=== PATIENT | male | born 1975 | race Caucasian/White ===

== ENCOUNTER 2017-12-31 11:39 | Emergency (ER) | payer MEDICAID, OTHER ==
--- NOTE | 2017-12-31 12:30 | EDPHY ---
H & P Stated Complaint: ETOH detox Source: Patient, Family - Personal History Current Tetanus/Diphtheria Vaccine: Unsure Current Tetanus Diphtheria and Acellular Pertussis (TDAP): Unsure - Medical/Surgical History Hx Asthma: No Hx Chronic Respiratory Disease: No Hx Diabetes: No Hx Cardiac Disease: No Hx Renal Disease: No Hx Cirrhosis: No Hx Alcoholism: Yes Hx HIV/AIDS: No Hx Splenectomy or Spleen Trauma: No Other PMH: ETOH abuse, - Social History Smoking Status: Current every day smoker Time Seen by Provider: 12/31/17 11:58 HPI/ROS: CHIEF COMPLAINT: Requesting referral to [facility] for alcohol detox HISTORY OF PRESENT ILLNESS: The patient presents the ED requesting a referral to [facility] for alcohol detox. The patient denies suicidal or homicidal ideation. The patient reportedly was unable to be seen for an intake visit at [facility] until next week. He was advised to seek care in the emergency department to see if a referral could be expedited. The patient reports his last drink was earlier today. The patient is reporting symptoms of mild alcohol withdrawal including feeling slightly nauseous and tremulous. The patient denies any additional acute medical complaints. The patient was at [facility] inpatient facility in September. REVIEW OF SYSTEMS: A comprehensive 10 point review of systems is otherwise negative aside from elements mentioned in the history of present illness. (Pramod Hernandez) - Physical Exam Exam: General Appearance: Alert, no distress, slightly tremulous Eyes: Pupils equal and round no pallor or injection ENT, Mouth: Mucous membranes moist Respiratory: There are no retractions, lungs are clear to auscultation Cardiovascular: Regular rate and rhythm Gastrointestinal: Abdomen is soft and nontender, no masses, bowel sounds normal Neurological: A&O, normal motor function, normal sensory exam, normal cranial nerves Skin: Warm and dry, no rashes Musculoskeletal: Neck is supple nontender Extremities: symmetrical, full range of motion Psychiatric: Patient is oriented X 3, there is no agitation (Pramod Hernandez) Constitutional: Initial Vital Signs Temperature (C) 36.7 C 12/31/17 11:53 Heart Rate 94 12/31/17 11:53 Respiratory Rate 16 12/31/17 11:53 Blood Pressure 137/96 H 12/31/17 11:53 O2 Sat (%) 96 12/31/17 11:53 O2 Delivery Mode Room Air Allergies/Adverse Reactions: No Known Allergies Allergy (Unverified 12/31/17 11:52) Home Medications: Medication Instructions Recorded Adderall 10 MG (*) 12/31/17 Medical Decision Making ED Course/Re-evaluation: The patient presents to the ED requesting medical clearance for voluntary inpatient admission to a detox facility. Case management was involved in a contacted [facility] who stated the patient would be eligible for voluntary admission. They have requested screening laboratory studies and urinalysis. The patient did receive 1 mg of Ativan in the emergency department at 1:40 p.m.. The patient has been medically cleared for admission to a voluntary detox facility. The patient is noted to have amphetamine in his urine consistent with Adderall prescription. He is noted to have a slight elevation of his liver function test and lipase secondary to his chronic alcohol dependence. He has no clinical evidence of an acute abdomen or pancreatitis. (Pramod Hernandez) 1500: The patient is awaiting placement. (Lisbeth Burdick) Differential Diagnosis: Differential diagnosis considered includes alcohol withdrawal syndrome, dehydration, metabolic abnormality, alcoholic hepatitis (Pramod Hernandez) - Data Points Laboratory Results: Laboratory Results 12/31/17 13:35 12/31/17 13:35 12/31/17 12/31/17 12/31/17 13:35 13:35 13:26 WBC 5.15 10^3/uL 10^3/uL (3.80-9.50) RBC 4.63 10^6/uL 10^6/uL (4.40-6.38) Hgb 16.5 g/dL g/dL (13.7-17.5) Hct 46.8 % % (40.0-51.0) MCV 101.1 fL H fL (81.5-99.8) MCH 35.6 pg H pg (27.9-34.1) MCHC 35.3 g/dL g/dL (32.4-36.7) RDW 12.5 % % (11.5-15.2) Plt Count 230 10^3/uL 10^3/uL (150-400) Sodium 138 mEq/L mEq/L (135-145) Potassium 3.9 mEq/L mEq/L (3.5-5.2) Chloride 95 mEq/L L mEq/L (97-110) Carbon Dioxide 27 mEq/l mEq/l (22-31) Anion Gap 16 mEq/L mEq/L (8-16) BUN 13 mg/dL mg/dL (7-23) Creatinine 0.9 mg/dL mg/dL (0.7-1.3) Estimated GFR > 60 Glucose 79 mg/dL mg/dL (70-100) Calcium 9.8 mg/dL mg/dL (8.5-10.4) Magnesium 2.0 mg/dL mg/dL (1.6-2.3) Total Bilirubin 0.4 mg/dL mg/dL (0.1-1.4) AST 160 IU/L H IU/L (17-59) ALT 187 IU/L H IU/L (21-72) Alkaline Phosphatase 91 IU/L IU/L (38-126) Total Protein 8.0 g/dL g/dL (6.3-8.2) Albumin 4.9 g/dL g/dL (3.5-5.0) Lipase 327 IU/L H IU/L (23-300) Urine Opiates Screen NEGATIVE (NEGATIVE) Urine Barbiturates NEGATIVE (NEGATIVE) Ur Phencyclidine Scrn NEGATIVE (NEGATIVE) Ur Amphetamine Screen NON-NEGATIVE H (NEGATIVE) U Benzodiazepines Scrn NEGATIVE (NEGATIVE) Urine Cocaine Screen NEGATIVE (NEGATIVE) U Marijuana (THC) Screen NEGATIVE (NEGATIVE) Ethyl Alcohol 117 mg/dL H mg/dL (0-10) Medications Given: Discontinued Medications Lorazepam (Ativan) 1 mg PO EDNOW ONE Stop: 12/31/17 13:42 Last Admin: 12/31/17 13:42 Dose: 1 mg Departure - Departure Disposition: Home, Routine, Self-Care Clinical Impression: Alcohol dependence Condition: Good Instructions: Alcohol Dependence (ED) Additional Instructions: 1. Please go to [facility] as arranged in the emergency department.
[2017-12-31] MEDS ORDERED: LORazepam 1 MG TAB ONE (13:40)
[2017-12-31] MEDS ORDERED: LORazepam 1 MG TAB PO ONE (13:41)
[2017-12-31 17:03] VITALS: BP 131/79
--- NOTE | 2017-12-31 17:12 | ASMTCMCOM ---
CM Note CM Note Notes: Patient presents to the ER requesting assistance with referral to [facility] for ETOH withdrawal. He explains that he did call [facility] to see about voluntary admission and they referred him to "go to an ER" for a potential same day admission. I contacted Brian at [facility] admissions #9 early this afternoon to initiate a referral. Brian tells me that patient was at [facility] for detox in September and "discharged" early, against the recommendation that he solidify a solid discharge plan. Brian tells me that patient would be able to return for detox, but they would like a solid committment from the patient regarding his intention for follow through. I have met with the patient to discuss this and have encouraged him to call admissions. Patient did call and speak with Brian in admissions and the admission process was started. 1445 PM: All requested paperwork, assessments, and labs faxed to [facility] . Awaiting physician review for acceptance/admission. 1630 PM: Patient has been accepted to detox. RN report given and patient discharged in the care of his mom (transport to ) [address] [facility] Date Signed: 12/31/2017 05:11 PM Electronically Signed By:Amna Mascorro RN
== END 2017-12-31 17:07 | disposition home or self-care (01) ==
DX: F10.20 Alcohol dependence, uncomplicated (principal); F17.200 Nicotine dependence, unspecified, uncomplicated
CPT/HCPCS: 80305; G0480

== ENCOUNTER 2018-01-22 06:14 | Emergency (ER) | payer MEDICAID ==
[2018-01-22] MEDS ORDERED: NS 1,000 ML IV ONE ×2 (06:41→08:25)
[2018-01-22] MEDS ORDERED: ONDANSETRON 4 MG/2 ML VIAL IVP ONE (06:41)
[2018-01-22 06:46] LABS: PLATELET COUNT 287 10^3/uL (150-400)
[2018-01-22] MEDS ORDERED: LORazepam 2 MG/ML INJ ONE (07:26)
--- NOTE | 2018-01-22 07:27 | EDPHY ---
H & P Stated Complaint: ETOH withdrawal Time Seen by Provider: 01/22/18 07:05 HPI/ROS: CHIEF COMPLAINT: Alcohol withdrawal HISTORY OF PRESENT ILLNESS: 42-year-old male with alcoholism presents with alcohol withdrawal. Yesterday he drank a liter of whiskey, which is fairly typical for him. Last drink was at 10:00 p.m.. He slept for a little while, but then awoke with anxiety and recurrent vomiting. He began to feel very anxious and decided come to the emergency department. He would like to stop drinking. He has been admitted for inpatient alcohol rehab twice in the past. No abdominal pain, diarrhea or fever. No recent illness or injury. REVIEW OF SYSTEMS: complete 10 point ROS negative except at noted in the HPI - Personal History Current Tetanus Diphtheria and Acellular Pertussis (TDAP): No - Medical/Surgical History PMH: Alcoholism Hx Asthma: No Hx Chronic Respiratory Disease: No Hx Diabetes: No Hx Cardiac Disease: No Hx Renal Disease: No Hx Cirrhosis: No Hx Alcoholism: Yes Hx HIV/AIDS: No Hx Splenectomy or Spleen Trauma: No - Social History Smoking Status: Current every day smoker - Physical Exam Exam: General Appearance: Alert, pleasant, nontoxic-appearing Eyes: Pupils equal and round, no conjunctival pallor or injection ENT, Mouth: Mucous membranes moist Neck: Normal inspection Respiratory: Lungs are clear to auscultation Cardiovascular: Regular rate and rhythm Gastrointestinal: Abdomen is soft and nontender Neurological: A&O, nonfocal exam, no tremor Skin: Warm and dry Extremities: Normal inspection Psychiatric: Mood and affect normal Constitutional: Initial Vital Signs Temperature (C) 36.3 C 01/22/18 06:14 Heart Rate 113 H 01/22/18 06:14 Respiratory Rate 20 01/22/18 06:14 Blood Pressure 151/113 H 01/22/18 06:14 O2 Sat (%) 95 01/22/18 06:14 O2 Delivery Mode Room Air O2 (L/minute) 2 Allergies/Adverse Reactions: No Known Allergies Allergy (Verified 01/22/18 06:14) Home Medications: Medication Instructions Recorded Adderall 10 MG (*) 12/31/17 Ondansetron Odt [Zofran Odt 4 mg 4 mg PO Q4 PRN #6 tab 01/22/18 (*)] Medical Decision Making ED Course/Re-evaluation: IV normal saline and Zofran 4 mg IV given. Continued to have nausea after IV Zofran. Ativan 1 mg IV given. 8:25 a.m.-reassessed the patient. He is feeling better and is able to tolerate oral fluids well. Alcohol level is 239, discussed with the patient. He is not going through alcohol withdrawal at this point. He would like 1 more liter of normal saline and then I will discharge him home. Abdominal exam remains benign and he denies abdominal pain. I do not suspect acute hepatitis, pancreatitis or a surgical abdomen and imaging is not indicated. Given resource list for inpt and outpt alcohol rehab. Safe and stable for discharge home. Differential Diagnosis: Differential diagnosis includes though it is not limited to alcohol withdrawal, appendicitis, cholecystitis, diverticulitis, pyelonephritis, bowel perforation, small bowel obstruction. - Data Points Laboratory Results: Laboratory Results 01/22/18 06:28 01/22/18 06:28 Medications Given: Discontinued Medications Chlordiazepoxide (Librium 25 Mg Prepack#6) 1 btl TAKEHOME EDNOW ONE Stop: 01/22/18 09:37 Last Admin: 01/22/18 09:37 Dose: 1 btl Sodium Chloride (Ns) 1,000 mls @ 0 mls/hr IV EDNOW ONE; Wide Open PRN Reason: Protocol Stop: 01/22/18 06:42 Last Admin: 01/22/18 06:44 Dose: 1,000 mls Sodium Chloride (Ns) 1,000 mls @ 0 mls/hr IV ONCE ONE; Wide Open PRN Reason: Protocol Stop: 01/22/18 08:26 Last Admin: 01/22/18 08:28 Dose: 1,000 mls Lorazepam (Ativan Injection) 1 mg IVP EDNOW ONE Stop: 01/22/18 07:29 Last Admin: 01/22/18 07:29 Dose: 1 mg Ondansetron HCl (Zofran) 4 mg IVP EDNOW ONE Stop: 01/22/18 06:42 Last Admin: 01/22/18 06:45 Dose: 4 mg Departure - Departure Disposition: Home, Routine, Self-Care Clinical Impression: Alcoholic intoxication Qualifiers: Complication of substance-induced condition: uncomplicated Qualified Code(s): F10.920 - Alcohol use, unspecified with intoxication, uncomplicated Alcohol dependence Qualifiers: Substance use status: with intoxication Complication of substance-induced condition: with unspecified complication Qualified Code(s): F10.229 - Alcohol dependence with intoxication, unspecified Vomiting Qualifiers: Vomiting type: unspecified Vomiting Intractability: non-intractable Nausea presence: with nausea Qualified Code(s): R11.2 - Nausea with vomiting, unspecified Condition: Good Instructions: Chlordiazepoxide (By mouth), Acute Nausea and Vomiting (ED) Additional Instructions: 1. Clear liquids for 24 hours. 2. Advance diet as tolerated. I suggest the BRAT diet to start: bananas, rice, applesauce and toast. 3. Return for worsening symptoms, persistent vomiting, abdominal pain, any concerns. Referrals: [facility] [Other] - As per Instructions Prescriptions: Ondansetron Odt [Zofran Odt 4 mg (*)] 4 mg PO Q4 PRN #6 tab PRN Reason: Nausea
[2018-01-22] MEDS ORDERED: LORazepam 2 MG/ML INJ IVP ONE (07:28)
[2018-01-22] MEDS ORDERED: CHLORDIAZEPOXIDE 25MG PREPK#6 BTL TAKEHOME ONE ×2 (09:32→09:36)
[2018-01-22 09:44] VITALS: BP 134/84
== END 2018-01-22 09:44 | disposition home or self-care (01) ==
DX: F10.229 Alcohol dependence with intoxication, unspecified (principal); R11.2 Nausea with vomiting, unspecified; E86.9 Volume depletion, unspecified; F17.200 Nicotine dependence, unspecified, uncomplicated
CPT/HCPCS: 96374; G0480; J2060; J2405

== ENCOUNTER 2018-02-05 17:56 | Emergency (ER) | payer MEDICAID ==
--- NOTE | 2018-02-05 18:16 | EDPHY ---
H & P Stated Complaint: ETOH/BINGING X 10 DAYS Time Seen by Provider: 02/05/18 18:15 HPI/ROS: HPI: This is a 42-year-old male who presents with Chief Complaint: Alcohol bingeing times 10 days Location: psych Quality: Alcohol binge and intoxication for 10 days Duration: 10 days Signs and Symptoms:no suicidal ideation with plan, no homicidal ideation, no paranoia Timing: Acute on chronic Severity: Severe Context: Patient presents accompanied by mother and father after they went over to his apartment today and found him passed out on the floor intoxicated with Hu Arzate bottles around him. Patient is self-employed and has a dog service. Mother reports that he was admitted to detox at the [facility] at on January 23. He has been drinking approximately a bottle of Hu Arzate daily for the last 10 days. Patient reports that in the past he has tried killing himself by cutting his wrist. Patient reports to me that he is depressed but dos not want to end his life. He is tearful during the interview. Parents want to get him into inpatient detox and rehab facility at [facility]. His brother also was enrolled in this program and has had good results. No previous psychiatric history. Parents report that patient does not talk about suicide or ending his life when he is sober. He only talks about suicide when he is intoxicated. Denies any other recreational drug use. Patient denies any previous psychiatric diagnoses or illnesses. Modifying Factors: None Comment: ROS: Limited secondary to intoxication MEDICAL/SURGICAL/SOCIAL HISTORY: Medical history: Alcohol abuse, ADD Surgical history: Denies Social history: Tobacco use. Family history noncontributory. CONSTITUTIONAL: Extremely intoxicated, tearful, middle-aged white male, awake and alert, no obvious distress HEENT: Atraumatic and normocephalic, PERRL, EOMI. Nares patent; no rhinorrhea; no nasal mucosal edema. Tympanic membranes clear. Oropharynx clear, no exudate and moist pink mucosa. Airway patent. No lymphadenopathy. No meningismus. Cardiovascular: Normal S1/S2, tachycardia, regular rhythm, without murmur rub or gallop. PULMONARY/CHEST: Symmetrical and nontender. Clear to auscultation bilaterally. Good air movement. No accessory muscle usage. ABDOMEN: Soft, nondistended, nontender, no rebound, no guarding, no peritoneal signs, no masses or organomegaly. No CVAT. EXTREMITIES: 2/2 pulses, strength 5/5, no deformities, no clubbing, no cyanosis or edema. NEUROLOGICAL: no focal neuro deficits. Alert to self, date of . Follows one-step commands with constant prompting. Fine motor deficit noted equal bilaterally. SKIN: Warm and dry, no erythema. no rash. Good capillary refill. PSYCH: Poor eye contact, no flight of ideas, someone organized thought process, poor insight and judgment, no auditory and visual command hallucinations, + suicidal ideation with a plan, no homicidal ideation, not paranoid Source: Patient, Family (Mother and father) Exam Limitations: Intoxication - Personal History Current Tetanus/Diphtheria Vaccine: Unsure - Medical/Surgical History Hx Asthma: No Hx Chronic Respiratory Disease: No Hx Diabetes: No Hx Cardiac Disease: No Hx Renal Disease: No Hx Cirrhosis: No Hx Alcoholism: Yes Hx HIV/AIDS: No Hx Splenectomy or Spleen Trauma: No Other PMH: ETOH abuse, - Social History Smoking Status: Current every day smoker Constitutional: Initial Vital Signs Temperature (C) 36.9 C 02/05/18 17:59 Heart Rate 134 H 02/05/18 17:59 Respiratory Rate 24 H 02/05/18 17:59 Blood Pressure 150/117 H 02/05/18 17:59 O2 Sat (%) 92 02/05/18 17:59 O2 Delivery Mode Room Air Allergies/Adverse Reactions: No Known Allergies Allergy (Verified 02/05/18 17:58) Home Medications: Medication Instructions Recorded Adderall 10 MG (*) 02/05/18 Medical Decision Making ED Course/Re-evaluation: 1809: .318 breathalyzer 1826: Placed on detainer for intoxication and incapable of making medical decisions. Parents are going to work on placing patient at [facility] tomorrow. Patient given 1 L normal saline and IV Zofran. No signs of delirium tremens/alcohol withdrawal seizures. 2103: Patient ambulating to the bathroom without any difficulty. No ataxia noted. Taxi was called for patient to be discharged to [facility]. Attempted call parents at [phone] per earlier conversation and no answering of phone. Family can continue to work on placement at outpatient [facility]. 2108: P.o. Librium 50 mg given. Repeat vital signs improved at discharge. 2300: Informed by charge nurse that patient asked the cap to pulley maintainer on the way to the [facility] and got out of the cab and walked away. Again I attempted to call his parents and they did not answer the phone. This patient was seen under the supervision of my secondary supervising physician. I evaluated care for this patient independently. Discussed this patient with Dr. Fong who did not see the patient. Differential Diagnosis: Altered mental status including but not limited to hypoglycemia, infectious process, electrolyte abnormality, head injury and intoxicants. - Data Points Medications Given: Discontinued Medications Chlordiazepoxide (Librium 25 Mg Prepack#6) 1 btl TAKEHOME EDNOW ONE Stop: 02/05/18 21:06 Last Admin: 02/05/18 21:12 Dose: 1 btl Chlordiazepoxide HCl (Librium) 50 mg PO EDNOW ONE Stop: 02/05/18 21:10 Last Admin: 02/05/18 21:12 Dose: 50 mg Sodium Chloride (Ns) 1,000 mls @ 0 mls/hr IV EDNOW ONE; Wide Open PRN Reason: Protocol Stop: 02/05/18 18:27 Last Admin: 02/05/18 18:31 Dose: 1,000 mls Ondansetron HCl (Zofran) 4 mg IVP EDNOW ONE Stop: 02/05/18 18:27 Last Admin: 02/05/18 19:01 Dose: 4 mg Departure - Departure Disposition: Home, Routine, Self-Care Clinical Impression: Alcohol intoxication Qualifiers: Complication of substance-induced condition: uncomplicated Qualified Code(s): F10.920 - Alcohol use, unspecified with intoxication, uncomplicated Instructions: Chlordiazepoxide (By mouth), Alcohol Intoxication (ED), Abuse of Alcohol (ED) Additional Instructions: STOP DRINKING. TO [facility]. Continue to make arrangements for outpatient treatment at [facility]. Call [phone] if you have thoughts of hurting or killing yourself or anyone else, or have any new or worsening symptoms that concern you. Referrals: [facility] [Outside] - As per Instructions
[2018-02-05] MEDS ORDERED: NS 1,000 ML IV ONE (18:26)
[2018-02-05] MEDS ORDERED: LORazepam 1 MG TAB PO PRN (18:26)
[2018-02-05] MEDS ORDERED: ONDANSETRON 4 MG/2 ML VIAL IVP ONE (18:26)
[2018-02-05] MEDS ORDERED: CHLORDIAZEPOXIDE 25MG PREPK#6 BTL TAKEHOME ONE ×2 (21:05→21:26)
[2018-02-05] MEDS ORDERED: chlordiazePOXIDE 25 MG CAP PO ONE (21:09)
[2018-02-05 21:47] VITALS: BP 99/71
== END 2018-02-05 21:46 | disposition home or self-care (01) ==
DX: F10.920 Alcohol use, unspecified with intoxication, uncomplicated (principal); E86.9 Volume depletion, unspecified; F17.200 Nicotine dependence, unspecified, uncomplicated
CPT/HCPCS: 96374; J2405

== ENCOUNTER 2018-06-14 14:52 | Emergency (ER) | payer MEDICAID ==
[2018-06-14] MEDS: NS 1,000 ML IV ONE ×2 (15:12→15:56)
--- NOTE | 2018-06-14 15:24 | EDPHY ---
H & P Stated Complaint: etoh last drink 0830 feels shaky and dehydrated Time Seen by Provider: 06/14/18 15:23 HPI/ROS: CHIEF COMPLAINT: "I am dehydrated", abdominal pain, feeling shaky HISTORY OF PRESENT ILLNESS: The patient presents to the ED with a subjective feeling of dehydration, generalized abdominal pain and feeling shaky in the setting of decreasing alcohol intake. The patient is a heavy alcoholic. He reports his last drink was at 830 this morning. The patient does complain of central abdominal pain and nausea. He denies any hematemesis or melena. The patient does take Adderall as a prescription medication. The patient does have a history of alcohol withdrawal. REVIEW OF SYSTEMS: A comprehensive 10 point review of systems is otherwise negative aside from elements mentioned in the history of present illness. Source: Patient - Personal History Current Tetanus Diphtheria and Acellular Pertussis (TDAP): Yes - Medical/Surgical History Hx Asthma: No Hx Chronic Respiratory Disease: No Hx Diabetes: No Hx Cardiac Disease: No Hx Renal Disease: No Hx Cirrhosis: No Hx Alcoholism: Yes Hx HIV/AIDS: No Hx Splenectomy or Spleen Trauma: No Other PMH: ETOH abuse, - Social History Smoking Status: Former smoker - Physical Exam Exam: General Appearance: Alert, tremulous Eyes: Pupils equal and round no pallor or injection ENT, Mouth: Mucous membranes moist Respiratory: There are no retractions, lungs are clear to auscultation Cardiovascular: Tachycardic Gastrointestinal: Minimal epigastric tenderness, no peritoneal signs Neurological: 5/5 strength all 4 extremities, cranial nerves 2-12 intact Skin: Warm and dry, no rashes Musculoskeletal: Neck is supple nontender Extremities: symmetrical, full range of motion Psychiatric: Patient is oriented X 3, there is no agitation Constitutional: Initial Vital Signs Temperature (C) 36.8 C 06/14/18 14:59 Heart Rate 139 H 06/14/18 14:59 Respiratory Rate 22 H 06/14/18 14:59 Blood Pressure 137/103 H 06/14/18 14:59 O2 Sat (%) 96 06/14/18 14:59 O2 Delivery Mode Nasal Cannula O2 (L/minute) 2 Allergies/Adverse Reactions: No Known Allergies Allergy (Verified 06/14/18 14:58) Home Medications: Medication Instructions Recorded Adderall 10 MG (*) 02/05/18 Medical Decision Making ED Course/Re-evaluation: The patient presents to the ED with obvious alcohol withdrawal with tachycardia , restlessness and tremor. The patient had an IV established and was started on the ED CIWA protocol and was treated with IV Ativan and 2 L of normal saline. To workup is abdominal pain I have ordered a CBC, serum chemistries, lipase and liver function test. The patient does have a mild transaminitis consistent with his alcoholism. I re-evaluated the patient at 6:00 p.m.. He is now eating without vomiting. His vital signs have improved and he would like to be discharged home. He would not like to go to [facility] but will have his father take him to [facility] tomorrow for consideration of inpatient detox. The patient will be discharged home with a prepack of Ativan. He understands return to the ED for any recurrent abdominal pain, vomiting, worsening symptoms or other concerns. Differential Diagnosis: Differential diagnosis considered includes alcohol withdrawal, dehydration, renal failure, pancreatitis, hepatitis - Data Points Laboratory Results: Laboratory Results 06/14/18 15:00 06/14/18 15:00 06/14/18 06/14/18 15:00 15:00 WBC 6.76 10^3/uL 10^3/uL (3.80-9.50) RBC 4.56 10^6/uL 10^6/uL (4.40-6.38) Hgb 16.0 g/dL g/dL (13.7-17.5) Hct 44.7 % % (40.0-51.0) MCV 98.0 fL fL (81.5-99.8) MCH 35.1 pg H pg (27.9-34.1) MCHC 35.8 g/dL g/dL (32.4-36.7) RDW 12.1 % % (11.5-15.2) Plt Count 253 10^3/uL 10^3/uL (150-400) MPV 8.5 fL L fL (8.7-11.7) Neut % (Auto) 56.7 % % (39.3-74.2) Lymph % (Auto) 27.8 % % (15.0-45.0) Woods % (Auto) 11.4 % % (4.5-13.0) Eos % (Auto) 3.3 % % (0.6-7.6) Baso % (Auto) 0.7 % % (0.3-1.7) Nucleat RBC Rel Count 0.0 % % (0.0-0.2) Absolute Neuts (auto) 3.83 10^3/uL 10^3/uL (1.70-6.50) Absolute Lymphs (auto) 1.88 10^3/uL 10^3/uL (1.00-3.00) Absolute Monos (auto) 0.77 10^3/uL 10^3/uL (0.30-0.80) Absolute Eos (auto) 0.22 10^3/uL 10^3/uL (0.03-0.40) Absolute Basos (auto) 0.05 10^3/uL 10^3/uL (0.02-0.10) Absolute Nucleated RBC 0.00 10^3/uL 10^3/uL (0-0.01) Immature Gran % 0.1 % % (0.0-1.1) Immature Gran # 0.01 10^3/uL 10^3/uL (0.00-0.10) Sodium 139 mEq/L mEq/L (135-145) Potassium 3.5 mEq/L mEq/L (3.3-5.0) Chloride 99 mEq/L mEq/L (97-110) Carbon Dioxide 19 mEq/l L mEq/l (22-31) Anion Gap 21 mEq/L H mEq/L (8-16) BUN 12 mg/dL mg/dL (7-23) Creatinine 0.9 mg/dL mg/dL (0.7-1.3) Estimated GFR > 60 Glucose 85 mg/dL mg/dL (70-100) Calcium 10.0 mg/dL mg/dL (8.5-10.4) Total Bilirubin 0.5 mg/dL mg/dL (0.1-1.4) Conjugated Bilirubin 0.3 mg/dL mg/dL (0.0-0.5) Unconjugated Bilirubin 0.2 mg/dL mg/dL (0.0-1.1) AST 322 IU/L H IU/L (17-59) ALT 174 IU/L H IU/L (21-72) Alkaline Phosphatase 102 IU/L IU/L (38-126) Total Protein 7.9 g/dL g/dL (6.3-8.2) Albumin 4.8 g/dL g/dL (3.5-5.0) Lipase 397 IU/L H IU/L (23-300) Medications Given: Lorazepam (Ativan Injection) 0 mg IVP Q1H PRN; Protocol PRN Reason: Alcohol Withdrawal w/IV access Stop: 06/15/18 03:37 Last Admin: 06/14/18 15:56 Dose: 2 mg Discontinued Medications Sodium Chloride (Ns) 1,000 mls @ 0 mls/hr IV EDNOW ONE; Wide Open PRN Reason: Protocol Stop: 06/14/18 15:12 Last Admin: 06/14/18 15:56 Dose: 1,000 mls Sodium Chloride (Ns) 1,000 mls @ 0 mls/hr IV EDNOW ONE; Wide Open PRN Reason: Protocol Stop: 06/14/18 15:56 Last Admin: 06/14/18 16:10 Dose: 1,000 mls Ondansetron HCl (Zofran) 4 mg IVP EDNOW ONE Stop: 06/14/18 15:38 Last Admin: 06/14/18 15:44 Dose: 4 mg Departure - Departure Disposition: Home, Routine, Self-Care Clinical Impression: Alcohol withdrawal Condition: Good Instructions: Alcohol Withdrawal (ED) Additional Instructions: 1. I do recommend following through with your desire to go to [facility] tomorrow to consider inpatient detox. 2. 1 Ativan as needed every 8 hr for symptoms of mild withdrawal. 3. Return to the ED for any worsening symptoms, uncontrolled vomiting or other concerns.
[2018-06-14] MEDS ORDERED: LORazepam 2 MG/ML INJ IVP PRN (15:37)
[2018-06-14] MEDS ORDERED: LORazepam 1 MG TAB PO PRN (15:37)
[2018-06-14] MEDS ORDERED: ONDANSETRON 4 MG/2 ML VIAL IVP ONE (15:37)
[2018-06-14 15:48] LABS: PLATELET COUNT 253 10^3/uL (150-400)
[2018-06-14] MEDS ORDERED: NS 1,000 ML IV ONE (15:55)
[2018-06-14] MEDS ORDERED: LORAZEPAM 1 MG PREPACK#4 BTL TAKEHOME ONE (17:52)
[2018-06-14 18:01] VITALS: BP 98/78
== END 2018-06-14 18:02 | disposition home or self-care (01) ==
DX: F10.239 Alcohol dependence with withdrawal, unspecified (principal); E86.0 Dehydration; Z87.891 Personal history of nicotine dependence
CPT/HCPCS: 96374; J2060; J2405